=== PATIENT | male | born 1990 | race Caucasian/White ===

== ENCOUNTER 2020-06-11 11:28 | Emergency (ER) | payer OTHER, SELFPAY | END 2020-06-11 12:03 | LOC: CSHERS 11:28 | DX: S20.212A Contusion of left front wall of thorax, initial encounter (principal); S80.02XA Contusion of left knee, initial encounter; R00.0 Tachycardia, unspecified; V49.9XXA Car occupant (driver) (passenger) injured in unspecified traffic accident, initial encounter | CPT/HCPCS: 93005 ==